=== PATIENT | male | born 1980 | race Caucasian/White ===

== ENCOUNTER 2017-01-04 16:09 | Emergency (ER) | payer OTHER ==
[~2017-01-04] VITALS: Ht 195.6 cm; Wt 153.9 kg
[~2017-01-04 16:09] MED LIST: AUGMENTIN875 MG PO; FLEXERIL10 MG PO; HUMALOG100 UNIT/1 SC; LEVEMIR100 UNIT/2 SC; MOTRIN800 MG PO; NORCO 5/3251 TABLET PO; OXYCODONE HCL10 MG PO
[2017-01-04 16:42] VITALS: BP 152/79
[2017-01-04 18:07] LABS: ADD MIUA? NO; BILIRUBIN NEGATIVE; BLOOD NEGATIVE; COLOR YELLOW ((YELLOW)); GLUCOSE (STRIP) NEGATIVE; KETONES NEGATIVE; LEUKOCYTES NEGATIVE; NITRITE NEGATIVE; PROTEIN (STRIP) NEGATIVE; UROBILINOGEN 0.2 MG/DL (0.2-1.0)
[2017-01-04 18:08] LABS: HEMATOCRIT 42.9 % (38.0-50.0); MCHC 32.2 G/DL (30.0-36.0); MCV 80.9 FL (86-99); MEAN PLAT.VOLUME 10.9 uM^3 (9.0-12.4); PLATELET COUNT 277 K/uL (156-360); RBC DIS.WIDTH-CV 13.1 % (11.8-14.6); WHITE BLOOD COUNT 10.7 K/uL (4.1-10.2)
[2017-01-04 18:13] LABS: CHLORIDE 104 mEq/L (99-109); POTASSIUM 4.4 mEq/L (3.7-5.4); SODIUM 139 mEq/L (136-147)
[2017-01-04 18:15] LABS: GLUCOSE 161 mg/dL (70-99)
[2017-01-04 18:17] LABS: ANION GAP 12 MEQ/L (2-14); TOTAL BILIRUBIN 0.3 mg/dL (0.0-1.0)
[2017-01-04 18:19] LABS: ALKALINE PHOSPHATASE 78 IU/L (3-129); GFR ESTIMATE (CALCULATED) > 59 mL/min/
[2017-01-04 18:20] LABS: UREA NITROGEN (BUN) 15 mg/dL (9-23)
[2017-01-04] MEDS ORDERED: TORADOL10 MG PO (19:06)
[2017-01-04] MEDS ORDERED: FLEXERIL10 MG PO (19:06)
[2017-01-04] MEDS ORDERED: PREDNISONE20 MG PO (19:06)
== END 2017-01-04 19:38 | disposition home or self-care (01) ==
LOC: EME 16:09
PROVIDERS: Nurse Practitioner Family
DX: M54.32 Sciatica, left side (principal); E11.9 Type 2 diabetes mellitus without complications; F17.200 Nicotine dependence, unspecified, uncomplicated
CPT/HCPCS: 72100; 73502; 80053; 81003; 85027